=== PATIENT | male | born 1960 | race African-American/Black ===

== ENCOUNTER 2017-07-26 18:55 | Emergency (ER) | payer MEDICAID ==
[~2017-07-26] VITALS: Ht 167.6 cm; Wt 81.1 kg
[2017-07-26 18:58] VITALS: BP 162/86
[2017-07-26] MEDS ORDERED: KETOROLAC 30 MG/1 ML ONE (19:56)
[2017-07-26] MEDS ORDERED: KETOROLAC 30 MG/1 ML IM ONE (20:00)
== END 2017-07-26 20:05 | disposition home or self-care (01) ==
LOC: ED 19:59
DX: M25.462 Effusion, left knee (principal); X50.1XXA Overexertion from prolonged static or awkward postures, initial encounter; Y93.89 Activity, other specified; Y92.098 Other place in other non-institutional residence as the place of occurrence of the external cause; Y99.8 Other external cause status
CPT/HCPCS: 99284